=== PATIENT | male | born 1950 | race Caucasian/White ===

== ENCOUNTER 2022-11-29 11:28 | Inpatient (IN) | payer MEDICARE, BC ==
[2022-11-29] MEDS ORDERED: Bisacodyl 10 MG SUPP PR PRN (15:59)
[2022-11-29] MEDS ORDERED: Calcium Carbonate 500 MG ChewTAB PO PRN (15:59)
[2022-11-29] MEDS ORDERED: Artificial Tear Sol 15 ML BOT EA EYE PRN (15:59)
[2022-11-29] MEDS ORDERED: Sodium Chloride 0.65% Nasal 44 ML BOT EA NARE PRN (15:59)
[2022-11-29] MEDS ORDERED: Cepastat Lozenges 1 LOZ PO PRN (15:59)
[2022-11-29] MEDS ORDERED: Ondansetron ODT 4 MG TAB PO PRN (15:59)
[2022-11-29] MEDS ORDERED: Bisacodyl 5 MG TAB PO PRN (15:59)
[2022-11-29] MEDS ORDERED: Benzonatate 100 MG CAP PO PRN (15:59)
[2022-11-29] MEDS ORDERED: Guaifenesin DM 100-10/5 ML UDCUP PO PRN (15:59)
[2022-11-29] MEDS ORDERED: Acetaminophen 650 MG Suppository PR PRN (15:59)
[2022-11-29] MEDS ORDERED: Senokot S 8.6-50 MG TAB PO PRN (15:59)
[2022-11-29] MEDS ORDERED: cefTRIAXone Sodium 1000 mg/10 ml Syringe (PEDI) IVPB SCH (16:00)
[2022-11-30 15:46] LABS: #Basophils 0.1 thou/uL (0.0-0.2); #Eosinphils 0.2 thou/uL (0.0-0.7); #Lymphocytes 1.5 thou/uL (1.20-3.40); #Neutrophils 10.4 thou/uL (1.40-6.50); %Basophils 0.4 % (0.0-1.0); %Eosinophils 1.4 % (0.0-10.0); %Lymphocytes 11.6 % (21.0-51.0); %Monocytes 7.2 % (0.0-10.0); %Neutrophils 79.3 % (42.0-75.0); Hemoglobin 13.3 g/dL (14.0-18.0); Mean Corpuscular HGB CONC 32.6 g/dL (32.0-36.0); Mean Corpuscular Hemoglobin 27.9 pg (27.0-31.0); Mean Corpuscular Volume 85.7 fl (78.0-98.0); Mean Platelet Volume 5.9 fL (7.4-10.4); Platelet Count 368 10x3/uL (130-400); RBC Distribution Width 12.6 % (11.5-14.5); Red Blood Cell (RBC) Count 4.75 mill/uL (4.70-6.10); White Blood Cell (WBC) Count 13.1 10x3/uL (4.8-10.8)
[2022-11-30 15:57] LABS: Anion Gap 14 mmol/L (10-20); BUN (Urea Nitrogen) 15 mg/dL (8.4-25.7); Calc. Creatinine Clearance 72 mL/min (70-130); Calcium 9.1 mg/dL (7.8-10.44); Carbon Dioxide 23 mmol/L (23-31); Chloride 107 mmol/L (98-107); Estimated GFR 93; Glucose 202 mg/dL (80-115); Potassium 3.8 mmol/L (3.5-5.1); Sodium 140 mmol/L (136-145)
[2022-11-30 16:00] LABS: SARS-CoV-2 NAA Rapid Test Not Detected (NotDetected)
[2022-11-30] MEDS: Donepezil HCl 5 MG TAB PO SCH ×2 (16:56→20:36)
[2022-11-30] MEDS: Ferrous Sulfate 325 MG TAB PO SCH ×2 (16:56→20:36)
[2022-11-30] MEDS: Atorvastatin Calcium 40 MG TAB PO SCH ×2 (16:56→20:36)
[2022-11-30] MEDS: Bupropion 150 MG SR TAB PO SCH ×2 (16:56→20:36)
[2022-11-30] MEDS: Nebivolol HCl 10 MG TAB PO SCH (16:57)
[2022-11-30] MEDS: Amlodipine 5 MG TAB PO SCH (16:57)
[2022-11-30] MEDS: Aspirin 81 mg Enteric Coated Tablet PO SCH (16:57)
[2022-11-30] MEDS: Tamsulosin HCl 0.4 MG CAP PO SCH (16:57)
[2022-11-30] MEDS: Montelukast Sodium 10 mg Tablet PO SCH ×2 (16:57→20:36)
[2022-11-30] MEDS: cefTRIAXone\\ROCEPHIN 1 GM in Sodium Chloride 0.9% 100 ML IVPB SCH (16:58)
[2022-11-30] MEDS ORDERED: Dextrose 50% Abboject 50 ML SYRINGE SLOW IVP PRN (20:35)
[2022-11-30] MEDS ORDERED: HumaLOG 300 UNITS/3 ML VIAL SC PRN (20:35)
[2022-11-30] MEDS ORDERED: ALPRAZolam 0.25 MG TAB PO SCH (21:00)
[2022-11-30] MEDS: Melatonin 3 MG TAB PO PRN (22:13)
[2022-11-30] MEDS ORDERED: QUEtiapine 25 MG TAB PO SCH (23:30)
[2022-12-01] MEDS: HumaLOG 300 UNITS/3 ML VIAL SC PRN (06:56)
[2022-12-01] MEDS: Bupropion 150 MG SR TAB PO SCH ×2 (09:32→21:54)
[2022-12-01] MEDS: metFORMIN 500 MG TAB PO SCH ×2 (09:32→16:49)
[2022-12-01] MEDS: Alogliptin 25 MG TAB PO SCH (09:32)
[2022-12-01] MEDS: Oxybutynin ER 5 MG TAB PO SCH (09:32)
[2022-12-01] MEDS: Aspirin 81 mg Enteric Coated Tablet PO SCH (09:32)
[2022-12-01] MEDS: Losartan Potassium 50 MG TAB PO SCH (09:32)
[2022-12-01] MEDS: Tamsulosin HCl 0.4 MG CAP PO SCH (09:33)
[2022-12-01] MEDS: Clopidogrel Bisulfate 75 MG TAB PO SCH (09:33)
[2022-12-01] MEDS: Amlodipine 5 MG TAB PO SCH (09:33)
[2022-12-01] MEDS: Nebivolol HCl 10 MG TAB PO SCH (09:33)
[2022-12-01] MEDS: Nicotine 21 MG PATCH TD SCH (09:37)
[2022-12-01] MEDS: Ferrous Sulfate 325 MG TAB PO SCH ×2 (09:37→21:54)
[2022-12-01] MEDS ORDERED: Cefdinir 125 MG/5 ML Oral Suspension PO SCH (11:45)
[2022-12-01] MEDS ORDERED: Cefdinir 300 MG CAP PO SCH (12:00)
[2022-12-01] MEDS: cefTRIAXone\\ROCEPHIN 1 GM in Sodium Chloride 0.9% 100 ML IVPB SCH (17:17)
[2022-12-01] MEDS: QUEtiapine 25 MG TAB PO SCH (21:53)
[2022-12-01] MEDS: Montelukast Sodium 10 mg Tablet PO SCH (21:53)
[2022-12-01] MEDS: Cefdinir 300 MG CAP PO SCH (21:53)
[2022-12-01] MEDS: Atorvastatin Calcium 40 MG TAB PO SCH (21:54)
[2022-12-01] MEDS: Donepezil HCl 5 MG TAB PO SCH (21:54)
[2022-12-01] MEDS: Melatonin 3 MG TAB PO PRN (23:30)
[2022-12-02] MEDS: Nicotine 21 MG PATCH TD SCH (08:55)
[2022-12-02] MEDS: metFORMIN 500 MG TAB PO SCH ×2 (08:55→18:00)
[2022-12-02] MEDS: Tamsulosin HCl 0.4 MG CAP PO SCH (08:55)
[2022-12-02] MEDS: Oxybutynin ER 5 MG TAB PO SCH (08:55)
[2022-12-02] MEDS: Cefdinir 300 MG CAP PO SCH ×2 (08:55→22:14)
[2022-12-02] MEDS: Nebivolol HCl 10 MG TAB PO SCH (08:56)
[2022-12-02] MEDS: Alogliptin 25 MG TAB PO SCH (08:56)
[2022-12-02] MEDS: Amlodipine 5 MG TAB PO SCH (08:56)
[2022-12-02] MEDS: Bupropion 150 MG SR TAB PO SCH ×2 (08:56→22:14)
[2022-12-02] MEDS: Losartan Potassium 50 MG TAB PO SCH (08:56)
[2022-12-02] MEDS: Aspirin 81 mg Enteric Coated Tablet PO SCH (08:56)
[2022-12-02] MEDS: Ferrous Sulfate 325 MG TAB PO SCH ×2 (08:57→22:14)
[2022-12-02] MEDS: Clopidogrel Bisulfate 75 MG TAB PO SCH (08:57)
[2022-12-02] MEDS: Atorvastatin Calcium 40 MG TAB PO SCH (21:18)
[2022-12-02] MEDS: Melatonin 3 MG TAB PO PRN (22:14)
[2022-12-02] MEDS: Montelukast Sodium 10 mg Tablet PO SCH (22:15)
[2022-12-02] MEDS: Donepezil HCl 5 MG TAB PO SCH (22:15)
[2022-12-02] MEDS: QUEtiapine 25 MG TAB PO SCH (22:15)
[2022-12-03 06:02] LABS: #Basophils 0.1 thou/uL (0.0-0.2); #Eosinphils 0.3 thou/uL (0.0-0.7); #Monocytes 0.6 thou/uL (0.11-0.59); #Neutrophils 5.4 thou/uL (1.40-6.50); %Basophils 0.7 % (0.0-1.0); %Eosinophils 3.1 % (0.0-10.0); %Monocytes 7.4 % (0.0-10.0); %Neutrophils 64.9 % (42.0-75.0); Hemoglobin 11.5 g/dL (14.0-18.0); Mean Corpuscular HGB CONC 33.4 g/dL (32.0-36.0); Mean Corpuscular Volume 83.8 fl (78.0-98.0); Mean Platelet Volume 5.9 fL (7.4-10.4); Platelet Count 333 10x3/uL (130-400); RBC Distribution Width 12.2 % (11.5-14.5); Red Blood Cell (RBC) Count 4.09 mill/uL (4.70-6.10); White Blood Cell (WBC) Count 8.4 10x3/uL (4.8-10.8)
[2022-12-03 06:17] LABS: Anion Gap 12 mmol/L (10-20); BUN (Urea Nitrogen) 20 mg/dL (8.4-25.7); Calc. Creatinine Clearance 78 mL/min (70-130); Calcium 8.7 mg/dL (7.8-10.44); Carbon Dioxide 22 mmol/L (23-31); Chloride 108 mmol/L (98-107); Estimated GFR 95; Glucose 85 mg/dL (80-115); Potassium 4.2 mmol/L (3.5-5.1); Sodium 138 mmol/L (136-145)
[2022-12-03] MEDS: metFORMIN 500 MG TAB PO SCH ×2 (08:47→17:55)
[2022-12-03] MEDS: Tamsulosin HCl 0.4 MG CAP PO SCH (08:47)
[2022-12-03] MEDS: Aspirin 81 mg Enteric Coated Tablet PO SCH (08:48)
[2022-12-03] MEDS: Cefdinir 300 MG CAP PO SCH ×2 (08:48→21:34)
[2022-12-03] MEDS: Bupropion 150 MG SR TAB PO SCH ×2 (08:48→21:35)
[2022-12-03] MEDS: Clopidogrel Bisulfate 75 MG TAB PO SCH (08:48)
[2022-12-03] MEDS: Losartan Potassium 50 MG TAB PO SCH (08:48)
[2022-12-03] MEDS: Nebivolol HCl 10 MG TAB PO SCH (08:49)
[2022-12-03] MEDS: Alogliptin 25 MG TAB PO SCH (08:49)
[2022-12-03] MEDS: Oxybutynin ER 5 MG TAB PO SCH (08:49)
[2022-12-03] MEDS: Amlodipine 5 MG TAB PO SCH (08:50)
[2022-12-03] MEDS: Nicotine 21 MG PATCH TD SCH (08:51)
[2022-12-03] MEDS: Ferrous Sulfate 325 MG TAB PO SCH ×2 (08:51→21:35)
[2022-12-03] MEDS: QUEtiapine 25 MG TAB PO SCH (21:34)
[2022-12-03] MEDS: Melatonin 3 MG TAB PO PRN (21:34)
[2022-12-03] MEDS: Donepezil HCl 5 MG TAB PO SCH (21:34)
[2022-12-03] MEDS: Montelukast Sodium 10 mg Tablet PO SCH (21:35)
[2022-12-03] MEDS: Atorvastatin Calcium 40 MG TAB PO SCH (21:35)
[2022-12-04] MEDS: Nicotine 21 MG PATCH TD SCH (09:24)
[2022-12-04] MEDS: metFORMIN 500 MG TAB PO SCH ×2 (09:25→16:58)
[2022-12-04] MEDS: Tamsulosin HCl 0.4 MG CAP PO SCH (09:25)
[2022-12-04] MEDS: Amlodipine 5 MG TAB PO SCH (09:25)
[2022-12-04] MEDS: Losartan Potassium 50 MG TAB PO SCH (09:26)
[2022-12-04] MEDS: Aspirin 81 mg Enteric Coated Tablet PO SCH (09:26)
[2022-12-04] MEDS: Clopidogrel Bisulfate 75 MG TAB PO SCH (09:26)
[2022-12-04] MEDS: Ferrous Sulfate 325 MG TAB PO SCH ×2 (09:26→20:51)
[2022-12-04] MEDS: Bupropion 150 MG SR TAB PO SCH ×2 (09:26→20:51)
[2022-12-04] MEDS: Oxybutynin ER 5 MG TAB PO SCH (09:26)
[2022-12-04] MEDS: Cefdinir 300 MG CAP PO SCH ×2 (09:26→20:51)
[2022-12-04] MEDS: Nebivolol HCl 10 MG TAB PO SCH (09:26)
[2022-12-04] MEDS: Alogliptin 25 MG TAB PO SCH (09:27)
[2022-12-04] MEDS: Melatonin 3 MG TAB PO PRN (20:50)
[2022-12-04] MEDS: Atorvastatin Calcium 40 MG TAB PO SCH (20:51)
[2022-12-04] MEDS: Montelukast Sodium 10 mg Tablet PO SCH (20:51)
[2022-12-04] MEDS: Donepezil HCl 5 MG TAB PO SCH (20:51)
[2022-12-04] MEDS: QUEtiapine 25 MG TAB PO SCH (20:51)
[2022-12-05 05:17] LABS: #Basophils 0.1 thou/uL (0.0-0.2); #Eosinphils 0.3 thou/uL (0.0-0.7); #Lymphocytes 2.2 thou/uL (1.20-3.40); #Monocytes 0.7 thou/uL (0.11-0.59); #Neutrophils 5.2 thou/uL (1.40-6.50); %Lymphocytes 26.5 % (21.0-51.0); %Monocytes 8.4 % (0.0-10.0); %Neutrophils 61.1 % (42.0-75.0); Hemoglobin 11.7 g/dL (14.0-18.0); Mean Corpuscular HGB CONC 33.1 g/dL (32.0-36.0); Mean Corpuscular Hemoglobin 27.9 pg (27.0-31.0); Mean Corpuscular Volume 84.5 fl (78.0-98.0); Mean Platelet Volume 6.1 fL (7.4-10.4); Platelet Count 321 10x3/uL (130-400); RBC Distribution Width 12.2 % (11.5-14.5); Red Blood Cell (RBC) Count 4.19 mill/uL (4.70-6.10); White Blood Cell (WBC) Count 8.4 10x3/uL (4.8-10.8)
[2022-12-05 05:25] LABS: Anion Gap 13 mmol/L (10-20); BUN (Urea Nitrogen) 20 mg/dL (8.4-25.7); Calc. Creatinine Clearance 82 mL/min (70-130); Calcium 8.9 mg/dL (7.8-10.44); Carbon Dioxide 22 mmol/L (23-31); Chloride 106 mmol/L (98-107); Estimated GFR 97; Glucose 84 mg/dL (80-115); Sodium 137 mmol/L (136-145)
[2022-12-05] MEDS: Oxybutynin ER 5 MG TAB PO SCH (08:02)
[2022-12-05] MEDS: Nicotine 21 MG PATCH TD SCH (08:02)
[2022-12-05] MEDS: Alogliptin 25 MG TAB PO SCH (08:02)
[2022-12-05] MEDS: Clopidogrel Bisulfate 75 MG TAB PO SCH (08:03)
[2022-12-05] MEDS: Amlodipine 5 MG TAB PO SCH (08:03)
[2022-12-05] MEDS: Cefdinir 300 MG CAP PO SCH ×2 (08:03→20:30)
[2022-12-05] MEDS: Losartan Potassium 50 MG TAB PO SCH (08:03)
[2022-12-05] MEDS: Nebivolol HCl 10 MG TAB PO SCH (08:03)
[2022-12-05] MEDS: Tamsulosin HCl 0.4 MG CAP PO SCH (08:03)
[2022-12-05] MEDS: Ferrous Sulfate 325 MG TAB PO SCH ×2 (08:03→20:30)
[2022-12-05] MEDS: Aspirin 81 mg Enteric Coated Tablet PO SCH (08:03)
[2022-12-05] MEDS: Bupropion 150 MG SR TAB PO SCH ×2 (08:03→20:31)
[2022-12-05] MEDS: metFORMIN 500 MG TAB PO SCH ×2 (08:04→17:23)
[2022-12-05] MEDS: Donepezil HCl 5 MG TAB PO SCH (20:30)
[2022-12-05] MEDS: Montelukast Sodium 10 mg Tablet PO SCH (20:31)
[2022-12-05] MEDS: Atorvastatin Calcium 40 MG TAB PO SCH (20:31)
[2022-12-05] MEDS: QUEtiapine 25 MG TAB PO SCH (20:31)
[2022-12-06] MEDS: Amlodipine 5 MG TAB PO SCH (08:47)
[2022-12-06] MEDS: metFORMIN 500 MG TAB PO SCH ×2 (08:47→17:39)
[2022-12-06] MEDS: Ferrous Sulfate 325 MG TAB PO SCH ×2 (08:48→20:51)
[2022-12-06] MEDS: Nebivolol HCl 10 MG TAB PO SCH (08:48)
[2022-12-06] MEDS: Bupropion 150 MG SR TAB PO SCH ×2 (08:48→20:51)
[2022-12-06] MEDS: Aspirin 81 mg Enteric Coated Tablet PO SCH (08:48)
[2022-12-06] MEDS: Alogliptin 25 MG TAB PO SCH (08:48)
[2022-12-06] MEDS: Clopidogrel Bisulfate 75 MG TAB PO SCH (08:48)
[2022-12-06] MEDS: Tamsulosin HCl 0.4 MG CAP PO SCH (08:49)
[2022-12-06] MEDS: Losartan Potassium 50 MG TAB PO SCH (08:49)
[2022-12-06] MEDS: Cefdinir 300 MG CAP PO SCH ×2 (08:49→20:51)
[2022-12-06] MEDS: Oxybutynin ER 5 MG TAB PO SCH (08:49)
[2022-12-06] MEDS: Nicotine 21 MG PATCH TD SCH (08:50)
[2022-12-06] MEDS: QUEtiapine 25 MG TAB PO SCH (20:50)
[2022-12-06] MEDS: Atorvastatin Calcium 40 MG TAB PO SCH (20:50)
[2022-12-06] MEDS: Donepezil HCl 5 MG TAB PO SCH (20:51)
[2022-12-06] MEDS: Montelukast Sodium 10 mg Tablet PO SCH (20:51)
[2022-12-07 06:29] LABS: Anion Gap 14 mmol/L (10-20); BUN (Urea Nitrogen) 16 mg/dL (8.4-25.7); Calc. Creatinine Clearance 81 mL/min (70-130); Calcium 8.8 mg/dL (7.8-10.44); Carbon Dioxide 22 mmol/L (23-31); Chloride 107 mmol/L (98-107); Estimated GFR 96; Glucose 88 mg/dL (80-115); Sodium 139 mmol/L (136-145)
[2022-12-07] MEDS: Nicotine 21 MG PATCH TD SCH (08:08)
[2022-12-07] MEDS: Alogliptin 25 MG TAB PO SCH (08:08)
[2022-12-07] MEDS: Tamsulosin HCl 0.4 MG CAP PO SCH (08:08)
[2022-12-07] MEDS: Amlodipine 5 MG TAB PO SCH (08:08)
[2022-12-07] MEDS: Bupropion 150 MG SR TAB PO SCH ×2 (08:09→20:59)
[2022-12-07] MEDS: metFORMIN 500 MG TAB PO SCH ×2 (08:09→17:26)
[2022-12-07] MEDS: Ferrous Sulfate 325 MG TAB PO SCH ×2 (08:09→20:59)
[2022-12-07] MEDS: Aspirin 81 mg Enteric Coated Tablet PO SCH (08:09)
[2022-12-07] MEDS: Losartan Potassium 50 MG TAB PO SCH (08:09)
[2022-12-07] MEDS: Oxybutynin ER 5 MG TAB PO SCH (08:09)
[2022-12-07] MEDS: Cefdinir 300 MG CAP PO SCH ×2 (08:10→20:58)
[2022-12-07] MEDS: Clopidogrel Bisulfate 75 MG TAB PO SCH (08:10)
[2022-12-07] MEDS: Nebivolol HCl 10 MG TAB PO SCH (08:18)
[2022-12-07] MEDS: Acetaminophen 325 MG TAB PO PRN (10:14)
[2022-12-07] MEDS: Diclofenac 1% 100 GM GEL TP SCH ×3 (12:24→20:55)
[2022-12-07] MEDS ORDERED: Diclofenac 1% 100 GM GEL TP SCH (13:00)
[2022-12-07] MEDS: Montelukast Sodium 10 mg Tablet PO SCH (20:58)
[2022-12-07] MEDS: Donepezil HCl 5 MG TAB PO SCH (20:59)
[2022-12-07] MEDS: QUEtiapine 25 MG TAB PO SCH (20:59)
[2022-12-07] MEDS: Atorvastatin Calcium 40 MG TAB PO SCH (20:59)
[2022-12-08] MEDS: metFORMIN 500 MG TAB PO SCH ×2 (08:48→17:39)
[2022-12-08] MEDS: Amlodipine 5 MG TAB PO SCH (08:48)
[2022-12-08] MEDS: Nicotine 21 MG PATCH TD SCH (08:48)
[2022-12-08] MEDS: Alogliptin 25 MG TAB PO SCH (08:48)
[2022-12-08] MEDS: Losartan Potassium 50 MG TAB PO SCH (08:49)
[2022-12-08] MEDS: Ferrous Sulfate 325 MG TAB PO SCH ×2 (08:49→20:55)
[2022-12-08] MEDS: Clopidogrel Bisulfate 75 MG TAB PO SCH (08:49)
[2022-12-08] MEDS: Nebivolol HCl 10 MG TAB PO SCH (08:49)
[2022-12-08] MEDS: Cefdinir 300 MG CAP PO SCH ×2 (08:49→20:55)
[2022-12-08] MEDS: Aspirin 81 mg Enteric Coated Tablet PO SCH (08:49)
[2022-12-08] MEDS: Bupropion 150 MG SR TAB PO SCH ×2 (08:49→20:55)
[2022-12-08] MEDS: Tamsulosin HCl 0.4 MG CAP PO SCH (08:49)
[2022-12-08] MEDS: Oxybutynin ER 5 MG TAB PO SCH (08:50)
[2022-12-08] MEDS: Diclofenac 1% 100 GM GEL TP SCH ×4 (08:54→20:54)
[2022-12-08] MEDS: Acetaminophen 325 MG TAB PO PRN (13:48)
[2022-12-08] MEDS: HumaLOG 300 UNITS/3 ML VIAL SC PRN (16:16)
[2022-12-08] MEDS: Montelukast Sodium 10 mg Tablet PO SCH (20:55)
[2022-12-08] MEDS: Donepezil HCl 5 MG TAB PO SCH (20:55)
[2022-12-08] MEDS: QUEtiapine 25 MG TAB PO SCH (20:55)
[2022-12-08] MEDS: Atorvastatin Calcium 40 MG TAB PO SCH (20:55)
[2022-12-09] MEDS: Losartan Potassium 50 MG TAB PO SCH (07:39)
[2022-12-09] MEDS: metFORMIN 500 MG TAB PO SCH ×2 (07:39→16:32)
[2022-12-09] MEDS: Tamsulosin HCl 0.4 MG CAP PO SCH (07:39)
[2022-12-09] MEDS: Clopidogrel Bisulfate 75 MG TAB PO SCH (07:39)
[2022-12-09] MEDS: Oxybutynin ER 5 MG TAB PO SCH (07:40)
[2022-12-09] MEDS: Nebivolol HCl 10 MG TAB PO SCH (07:40)
[2022-12-09] MEDS: Aspirin 81 mg Enteric Coated Tablet PO SCH (07:41)
[2022-12-09] MEDS: Amlodipine 5 MG TAB PO SCH (07:41)
[2022-12-09] MEDS: Ferrous Sulfate 325 MG TAB PO SCH ×2 (07:41→20:16)
[2022-12-09] MEDS: Bupropion 150 MG SR TAB PO SCH ×2 (07:41→20:16)
[2022-12-09] MEDS: Diclofenac 1% 100 GM GEL TP SCH ×4 (07:42→20:15)
[2022-12-09] MEDS: Alogliptin 25 MG TAB PO SCH (07:42)
[2022-12-09] MEDS ORDERED: traMADol HCl 50 MG TAB PO PRN (09:19)
[2022-12-09] MEDS: Nicotine 21 MG PATCH TD SCH (09:43)
[2022-12-09] MEDS: QUEtiapine 25 MG TAB PO SCH (20:16)
[2022-12-09] MEDS: Montelukast Sodium 10 mg Tablet PO SCH (20:16)
[2022-12-09] MEDS: Donepezil HCl 5 MG TAB PO SCH (20:16)
[2022-12-09] MEDS: Atorvastatin Calcium 40 MG TAB PO SCH (20:16)
[2022-12-10] MEDS: Oxybutynin ER 5 MG TAB PO SCH (07:14)
[2022-12-10] MEDS: metFORMIN 500 MG TAB PO SCH ×2 (07:15→16:39)
[2022-12-10] MEDS: Losartan Potassium 50 MG TAB PO SCH (07:15)
[2022-12-10] MEDS: Tamsulosin HCl 0.4 MG CAP PO SCH (07:15)
[2022-12-10] MEDS: Clopidogrel Bisulfate 75 MG TAB PO SCH (07:15)
[2022-12-10] MEDS: Ferrous Sulfate 325 MG TAB PO SCH ×2 (07:15→20:40)
[2022-12-10] MEDS: Nebivolol HCl 10 MG TAB PO SCH (07:16)
[2022-12-10] MEDS: Bupropion 150 MG SR TAB PO SCH ×2 (07:16→20:40)
[2022-12-10] MEDS: Amlodipine 5 MG TAB PO SCH (07:16)
[2022-12-10] MEDS: Alogliptin 25 MG TAB PO SCH (07:16)
[2022-12-10] MEDS: Aspirin 81 mg Enteric Coated Tablet PO SCH (07:17)
[2022-12-10] MEDS: Nicotine 21 MG PATCH TD SCH (07:19)
[2022-12-10] MEDS: Diclofenac 1% 100 GM GEL TP SCH ×4 (07:45→20:40)
[2022-12-10] MEDS: QUEtiapine 25 MG TAB PO SCH (20:40)
[2022-12-10] MEDS: Montelukast Sodium 10 mg Tablet PO SCH (20:40)
[2022-12-10] MEDS: Donepezil HCl 5 MG TAB PO SCH (20:40)
[2022-12-10] MEDS: Atorvastatin Calcium 40 MG TAB PO SCH (20:40)
[2022-12-10 21:12] VITALS: BMI 22.1
[2022-12-11 05:57] LABS: #Basophils 0.1 thou/uL (0.0-0.2); #Eosinphils 0.1 thou/uL (0.0-0.7); #Lymphocytes 1.7 thou/uL (1.20-3.40); #Monocytes 0.6 thou/uL (0.11-0.59); #Neutrophils 4.7 thou/uL (1.40-6.50); %Lymphocytes 23.6 % (21.0-51.0); %Monocytes 8.4 % (0.0-10.0); Hemoglobin 10.7 g/dL (14.0-18.0); Mean Corpuscular HGB CONC 33.2 g/dL (32.0-36.0); Mean Corpuscular Hemoglobin 27.8 pg (27.0-31.0); Mean Corpuscular Volume 83.7 fl (78.0-98.0); Mean Platelet Volume 7.5 fL (7.4-10.4); Platelet Count 204 10x3/uL (130-400); RBC Distribution Width 12.5 % (11.5-14.5); Red Blood Cell (RBC) Count 3.84 mill/uL (4.70-6.10); White Blood Cell (WBC) Count 7.1 10x3/uL (4.8-10.8)
[2022-12-11 06:02] LABS: Anion Gap 14 mmol/L (10-20); BUN (Urea Nitrogen) 13 mg/dL (8.4-25.7); Calc. Creatinine Clearance 79 mL/min (70-130); Calcium 8.5 mg/dL (7.8-10.44); Carbon Dioxide 22 mmol/L (23-31); Chloride 108 mmol/L (98-107); Estimated GFR 96; Glucose 124 mg/dL (80-115); Potassium 3.6 mmol/L (3.5-5.1); Sodium 140 mmol/L (136-145)
[2022-12-11] MEDS: Diclofenac 1% 100 GM GEL TP SCH ×4 (08:10→20:19)
[2022-12-11] MEDS: Tamsulosin HCl 0.4 MG CAP PO SCH (08:12)
[2022-12-11] MEDS: Oxybutynin ER 5 MG TAB PO SCH (08:12)
[2022-12-11] MEDS: Ferrous Sulfate 325 MG TAB PO SCH ×2 (08:12→20:19)
[2022-12-11] MEDS: Nicotine 21 MG PATCH TD SCH (08:12)
[2022-12-11] MEDS: Nebivolol HCl 10 MG TAB PO SCH (08:12)
[2022-12-11] MEDS: Alogliptin 25 MG TAB PO SCH (08:12)
[2022-12-11] MEDS: metFORMIN 500 MG TAB PO SCH ×2 (08:14→17:23)
[2022-12-11] MEDS: Amlodipine 5 MG TAB PO SCH (08:14)
[2022-12-11] MEDS: Losartan Potassium 50 MG TAB PO SCH (08:14)
[2022-12-11] MEDS: Aspirin 81 mg Enteric Coated Tablet PO SCH (08:15)
[2022-12-11] MEDS: Clopidogrel Bisulfate 75 MG TAB PO SCH (08:15)
[2022-12-11] MEDS: Bupropion 150 MG SR TAB PO SCH ×2 (08:15→20:19)
[2022-12-11] MEDS: HumaLOG 300 UNITS/3 ML VIAL SC PRN (17:22)
[2022-12-11] MEDS: Atorvastatin Calcium 40 MG TAB PO SCH (20:19)
[2022-12-11] MEDS: Donepezil HCl 5 MG TAB PO SCH (20:19)
[2022-12-11] MEDS: Montelukast Sodium 10 mg Tablet PO SCH (20:19)
[2022-12-11] MEDS: QUEtiapine 25 MG TAB PO SCH (20:19)
[2022-12-12] MEDS: Diclofenac 1% 100 GM GEL TP SCH ×4 (08:06→20:39)
[2022-12-12] MEDS: Nebivolol HCl 10 MG TAB PO SCH (08:10)
[2022-12-12] MEDS: Losartan Potassium 50 MG TAB PO SCH (08:10)
[2022-12-12] MEDS: Clopidogrel Bisulfate 75 MG TAB PO SCH (08:11)
[2022-12-12] MEDS: Ferrous Sulfate 325 MG TAB PO SCH ×2 (08:12→20:38)
[2022-12-12] MEDS: Amlodipine 5 MG TAB PO SCH ×2 (08:14→08:16)
[2022-12-12] MEDS: metFORMIN 500 MG TAB PO SCH ×2 (08:14→16:33)
[2022-12-12] MEDS: Hydrochlorothiazide 25 MG TAB PO SCH (08:15)
[2022-12-12] MEDS: Aspirin 81 mg Enteric Coated Tablet PO SCH (08:15)
[2022-12-12] MEDS: Tamsulosin HCl 0.4 MG CAP PO SCH (08:16)
[2022-12-12] MEDS: Alogliptin 25 MG TAB PO SCH (08:17)
[2022-12-12] MEDS: Bupropion 150 MG SR TAB PO SCH ×2 (08:17→20:38)
[2022-12-12] MEDS: Oxybutynin ER 5 MG TAB PO SCH (08:17)
[2022-12-12] MEDS: QUEtiapine 25 MG TAB PO SCH (20:38)
[2022-12-12] MEDS: Montelukast Sodium 10 mg Tablet PO SCH (20:38)
[2022-12-12] MEDS: Donepezil HCl 5 MG TAB PO SCH (20:38)
[2022-12-12] MEDS: Atorvastatin Calcium 40 MG TAB PO SCH (20:38)
[2022-12-12] MEDS: Melatonin 3 MG TAB PO PRN (20:38)
[2022-12-13 08:32] VITALS: BP 116/63; TEMP 98.1
[2022-12-13] MEDS: Diclofenac 1% 100 GM GEL TP SCH (08:33)
[2022-12-13] MEDS: Bupropion 150 MG SR TAB PO SCH (08:35)
[2022-12-13] MEDS: Tamsulosin HCl 0.4 MG CAP PO SCH (08:35)
[2022-12-13] MEDS: Ferrous Sulfate 325 MG TAB PO SCH (08:35)
[2022-12-13] MEDS: Aspirin 81 mg Enteric Coated Tablet PO SCH (08:37)
[2022-12-13] MEDS: metFORMIN 500 MG TAB PO SCH (08:37)
[2022-12-13] MEDS: Oxybutynin ER 5 MG TAB PO SCH (08:37)
[2022-12-13] MEDS: Alogliptin 25 MG TAB PO SCH (08:38)
[2022-12-13] MEDS: Clopidogrel Bisulfate 75 MG TAB PO SCH (08:38)
[2022-12-13] MEDS: Nebivolol HCl 10 MG TAB PO SCH (08:38)
[2022-12-13] MEDS: Hydrochlorothiazide 25 MG TAB PO SCH (08:39)
[2022-12-13] MEDS ORDERED: Ondansetron ODT 4 MG TAB SL PRN (11:00)
== END 2022-12-13 10:45 | disposition home health service (06) | DRG 948 ==
LOC: NAV ACUTE 11-30 14:05
PROVIDERS: ADMIT Family Medicine; ATTEND Family Medicine
PROC: 5A09357 Assistance with Respiratory Ventilation, Less than 24 Consecutive Hours, Continuous Positive Airway Pressure (ICD-10-PCS; principal; 2022-12-08)
DX: R53.81 Other malaise (principal); N39.0 Urinary tract infection, site not specified; F01.518 Vascular dementia, unspecified severity, with other behavioral disturbance; R53.1 Weakness; I10 Essential (primary) hypertension; E78.5 Hyperlipidemia, unspecified; E11.9 Type 2 diabetes mellitus without complications; I49.5 Sick sinus syndrome; I25.10 Atherosclerotic heart disease of native coronary artery without angina pectoris; N40.0 Benign prostatic hyperplasia without lower urinary tract symptoms; G47.00 Insomnia, unspecified; K21.9 Gastro-esophageal reflux disease without esophagitis; Z98.41 Cataract extraction status, right eye; Z95.0 Presence of cardiac pacemaker; Z98.42 Cataract extraction status, left eye; Z87.891 Personal history of nicotine dependence; Z86.73 Personal history of transient ischemic attack (TIA), and cerebral infarction without residual deficits; Z79.82 Long term (current) use of aspirin; Z79.84 Long term (current) use of oral hypoglycemic drugs; Z79.899 Other long term (current) drug therapy; Z89.511 Acquired absence of right leg below knee; Z20.822 Contact with and (suspected) exposure to COVID-19
CPT/HCPCS: 36415; 36416; 80048; 85025; 87811; J1650; J1815; U0002

== ENCOUNTER 2023-04-10 13:52 | Emergency (ER) | payer OTHER, MEDICARE, BC ==
[2023-04-10] MEDS ORDERED: Bacitracin 1 PK ONE (14:09)
== END 2023-04-10 14:20 | disposition home or self-care (01) ==
LOC: NAV ERS 13:52
DX: S51.812A Laceration without foreign body of left forearm, initial encounter (principal); F17.220 Nicotine dependence, chewing tobacco, uncomplicated; W54.8XXA Other contact with dog, initial encounter
CPT/HCPCS: 99283